=== PATIENT | female | born 1985 | race Caucasian/White ===

== ENCOUNTER 2017-11-17 12:03 | Emergency (ER) | payer SELFPAY ==
[~2017-11-17] VITALS: Ht 152.4 cm; Wt 128.4 kg
[2017-11-17 12:18] VITALS: BP 139/91; Ht 152.4 cm; Wt 128.4 kg
== END 2017-11-17 13:20 | disposition home or self-care (01) ==
LOC: ED 12:03
DX: S09.90XA Unspecified injury of head, initial encounter (principal); Z88.0 Allergy status to penicillin; Z88.5 Allergy status to narcotic agent; X58.XXXA Exposure to other specified factors, initial encounter; Y93.89 Activity, other specified; Y92.89 Other specified places as the place of occurrence of the external cause; Y99.8 Other external cause status

== ENCOUNTER 2018-01-09 13:44 | Emergency (ER) | payer OTHER ==
[~2018-01-09] VITALS: Ht 154.9 cm; Wt 128.8 kg
[2018-01-09 13:46] VITALS: BP 120/67; Ht 154.9 cm; Wt 128.8 kg
== END 2018-01-09 14:15 | disposition home or self-care (01) ==
LOC: ED 13:44
DX: L30.8 Other specified dermatitis (principal); Z88.0 Allergy status to penicillin; Z88.5 Allergy status to narcotic agent
CPT/HCPCS: 82962; J7512; Q0163

== ENCOUNTER 2018-02-16 11:20 | Emergency (ER) | payer OTHER | END 2018-02-16 11:31 | disposition left against medical advice (07) | LOC: ED 11:20 | DX: Z53.21 Procedure and treatment not carried out due to patient leaving prior to being seen by health care provider (principal) ==

== ENCOUNTER 2018-06-03 18:18 | Emergency (ER) | payer OTHER ==
[~2018-06-03] VITALS: Ht 152.4 cm; Wt 122.5 kg
[2018-06-03 19:17] VITALS: BP 148/88
== END 2018-06-03 19:17 | disposition home or self-care (01) ==
LOC: ED 18:18
DX: R11.10 Vomiting, unspecified (principal); R19.7 Diarrhea, unspecified; R10.10 Upper abdominal pain, unspecified; R53.1 Weakness; R42 Dizziness and giddiness; Z88.0 Allergy status to penicillin; Z88.5 Allergy status to narcotic agent; Z98.890 Other specified postprocedural states
CPT/HCPCS: Q0162

== ENCOUNTER 2018-06-04 12:44 | Emergency (ER) | payer OTHER ==
[~2018-06-04] VITALS: Ht 154.9 cm; Wt 130.6 kg
[2018-06-04 13:03] VITALS: Ht 154.9 cm; Wt 130.6 kg
[2018-06-04 16:30] VITALS: BP 134/74
== END 2018-06-04 16:30 | disposition home or self-care (01) ==
LOC: ED 12:44
DX: A08.4 Viral intestinal infection, unspecified (principal); Z98.890 Other specified postprocedural states; Z88.0 Allergy status to penicillin; Z88.5 Allergy status to narcotic agent
CPT/HCPCS: J2405; J7030

== ENCOUNTER 2018-08-25 18:52 | Emergency (ER) | payer OTHER | END 2018-08-25 23:27 | disposition home or self-care (01) | LOC: ED 18:52 ==

== ENCOUNTER 2018-11-30 13:46 | Emergency (ER) | payer OTHER ==
[~2018-11-30] VITALS: Ht 154.9 cm; Wt 130.2 kg
[2018-11-30 13:57] VITALS: Ht 154.9 cm; Wt 130.2 kg
[2018-11-30 15:37] VITALS: BP 138/74
== END 2018-11-30 15:37 | disposition home or self-care (01) ==
LOC: ED 13:46
DX: S61.212D Laceration without foreign body of right middle finger without damage to nail, subsequent encounter (principal); Z88.0 Allergy status to penicillin; Z88.5 Allergy status to narcotic agent; Z98.890 Other specified postprocedural states; X58.XXXD Exposure to other specified factors, subsequent encounter

== ENCOUNTER 2019-03-20 02:28 | Emergency (ER) | payer OTHER ==
[~2019-03-20] VITALS: Ht 154.9 cm; Wt 135.2 kg
[2019-03-20 02:37] VITALS: Ht 154.9 cm; Wt 135.2 kg
[2019-03-20 03:30] VITALS: BP 130/77
== END 2019-03-20 03:30 | disposition home or self-care (01) ==
LOC: ED 02:28
DX: M54.5 Low back pain (principal); Z98.890 Other specified postprocedural states; Z88.0 Allergy status to penicillin; Z88.5 Allergy status to narcotic agent
CPT/HCPCS: J1885

== ENCOUNTER 2019-09-27 11:03 | Emergency (ER) | payer OTHER ==
[~2019-09-27] VITALS: Ht 162.6 cm; Wt 141.1 kg
[2019-09-27 11:25] VITALS: BP 121/68; Ht 162.6 cm; Wt 141.1 kg
== END 2019-09-27 12:41 | disposition home or self-care (01) ==
LOC: ED 11:03
DX: J06.9 Acute upper respiratory infection, unspecified (principal); Z98.890 Other specified postprocedural states; Z88.5 Allergy status to narcotic agent; Z88.0 Allergy status to penicillin
CPT/HCPCS: J7030; Q0092

== ENCOUNTER 2020-01-19 10:11 | Emergency (ER) | payer OTHER ==
[~2020-01-19] VITALS: Ht 154.9 cm; Wt 147.4 kg
[2020-01-19 10:51] VITALS: Ht 154.9 cm; Wt 147.4 kg
[2020-01-19 11:48] LABS: BASOPHIL % 0.3 % (0-2); PLATELET COUNT 218 x10^3mcL (130-400)
[2020-01-19 11:51] LABS: RED CELL DISTRIBUTION WIDTH 16.3 % (11.5-14.5)
[2020-01-19 11:59] LABS: CALCIUM 8.9 mg/dL (8.5-10.1); CARBON DIOXIDE 27.9 mmol/L (21-32); CHLORIDE SERUM 102 mmol/L (98-107); CREATININE SERUM 0.7 mg/dL (0.6-1.0); GFR1 > 60 mL/min; GLUCOSE SERUM 117 mg/dL (74-106); POTASSIUM SERUM 4.4 mmol/L (3.5-5.1); SODIUM SERUM 136 mmol/L (136-145)
[2020-01-19 12:03] LABS: ALBUMIN 3.8 g/dL (3.4-5.0); ALKALINE PHOSPHATASE 68 U/L (46-116); ALT/SGPT 40 U/L (14-59); AST/SGOT 21 U/L (15-37); BILIRUBIN TOTAL 0.29 mg/dL (0.20-1.00); LIPASE 62 IU/L (73-393); TOTAL PROTEIN, SERUM 7.6 g/dL (6.4-8.2)
[2020-01-19 13:20] VITALS: BP 128/85
== END 2020-01-19 13:54 | disposition home or self-care (01) ==
LOC: ED 10:11
PROVIDERS: Emergency Medicine
DX: K29.70 Gastritis, unspecified, without bleeding (principal); Z88.5 Allergy status to narcotic agent; Z88.0 Allergy status to penicillin; Z90.49 Acquired absence of other specified parts of digestive tract; Z98.890 Other specified postprocedural states
CPT/HCPCS: 36415; J1885; Q0092